=== PATIENT | male | born 1940 | race Caucasian/White ===

== ENCOUNTER → 2019-03-09 12:48 | Outpatient (CLI) | payer MEDICARE, SELFPAY ==
--- NOTE | 2019-03-09 14:58 | PM.TREADMILL ---
Cardiac Stress Test Report Referral & Results Date Patient Seen: 03/09/19 Time Patient Seen: 14:30 Requesting provider: Mo Mitchell Indication: CAD Rest ECG: Sinus rhythm with frequent PACs Procedure Note: Today following both written and verbal informed consent, the patient was exercised according to a standard Raheem protocol. The patient exercised for a total of 7 minutes 38 seconds achieving a maximum heart rate of 140. Patient's maximum systolic blood pressure was 190 for. This was an estimated 10.1 METs. Excellent exercise capacity. No signs or symptoms of angina. Normal heart rate/BP response to exercise. Occasional PVCs that increased in frequency with exercise. No ST deviations. Impression: Low probability for ischemia. Huffman treadmill score of 8 predicts 97% survival rate over 5 years Please note: Actual ECG tracings can be found in the PACS system.
== END ==
PROVIDERS: Visit Provider Internal Medicine Cardiovascular Disease
DX: I25.10 Atherosclerotic heart disease of native coronary artery without angina pectoris (principal); I71.2 Thoracic aortic aneurysm, without rupture; E78.5 Hyperlipidemia, unspecified
CPT/HCPCS: 93016; 93017; 93018

== ENCOUNTER → 2021-02-18 10:05 | Outpatient (CLI) | payer MEDICARE, SELFPAY ==
--- NOTE | 2021-02-18 | DI.MRI.S_ITS ---
PROCEDURE: MR KNEE LT WO CON INDICATIONS: Magnetic Resonance Imaging TECHNIQUE: Noncontrast sagittal PD fast spin echo and T2 fast spin echo with fat saturation, sagittal 3-D FLASH with fat saturation; coronal T1 spin echo and PD fast spin echo with fat saturation, and axial PD fast spin echo with fat saturation through the knee. COMPARISON: None. FINDINGS: Menisci: Medial meniscus: Ill-defined macerated tear involving the posterior horn and body of the medial meniscus. There is near complete extrusion of the body. Lateral meniscus: Ill-defined tear involving the body of the lateral meniscus with abnormal signal extending to the superior and inferior articular surfaces. Cruciate ligaments: Anterior cruciate ligament: Intact. Posterior cruciate ligament: Intact. Medial structures: The medial collateral ligament: There is medial bowing of the medial collateral ligament, with mild internal signal changes and no complete rupture. There is adjacent soft tissue edema. The appearance could reflect reactive changes to medial compartment pathology, versus low-grade sprain of the MCL. Semimembranosus tendon: Insertional tendinopathy, technically age indeterminate. Visualized pes anserinus tendons: Intact. Bursal fluid: none. Lateral structures: The lateral collateral ligament intact. Biceps femoris tendon appears intact. Popliteus tendon grossly unremarkable. Fluid in the popliteus bursa. Iliotibial band appears intact. Anterior structures: Quadriceps tendon: Intact. Medial patellofemoral ligament: Intact. Lateral patellofemoral ligament: Intact. Patellar tendon: Mild tendinopathy. Anterior soft tissues: Prepatellar and superficial infrapatellar subcutaneous edema/fluid. Deep infrapatellar region: Normal. Bones and cartilage: Marrow: No focal marrow contusion or discrete low signal fracture line. Incidentally noted 1 cm pedunculated exostosis arising off the medial tibia on image 24/10. Medial compartment: Near full-thickness loss of the femoral and tibial central weight-bearing cartilage. Lateral compartment: Intrasubstance signal changes of the weight-bearing central femoral and tibial cartilage without focal defect. Patellofemoral compartment: Full-thickness loss of the cartilage overlying the medial patellar facet. Joint space: Effusion: Large joint effusion. There are numerous varices seen in the popliteal fossa. Popliteal fossa: Tiny 1 cm Patel's cyst. Loose bodies: None. IMPRESSION: Ill-defined macerated tear of the medial meniscal posterior horn and body with near complete extrusion. Adjacent MCL changes as above Lateral meniscal tear involving the body. Degenerative joint disease, most pronounced the medial compartment Large joint effusion. Tiny Patel's cyst. Numerous prominent varices seen in the popliteal fossa. Additional chronic and incidental findings as above. Dictated by: Forrest Baker M.D. on 02/18/2021 at 11:41 Approved by: Forrest Baker M.D. on 02/18/2021 at 11:55
== END ==
PROVIDERS: PCP Family Medicine; Referring Provider Family Medicine; Visit Provider Family Medicine
DX: M25.562 Pain in left knee (principal); S83.242A Other tear of medial meniscus, current injury, left knee, initial encounter; S83.282A Other tear of lateral meniscus, current injury, left knee, initial encounter; M17.12 Unilateral primary osteoarthritis, left knee; M25.462 Effusion, left knee
CPT/HCPCS: 73721